=== PATIENT | male | born 1945 | race Caucasian/White ===

== ENCOUNTER → 2018-01-09 06:59 | Day surgery (SDC) | payer MEDICARE, SELFPAY ==
[2018-01-08 11:57] VITALS: BMI 36.4
[2018-01-09 07:10] LABS: Prothrombin Time Fingerstick 13.8 SEC (11.9-14.4)
--- NOTE | 2018-01-09 08:48 | CL.D_ITS ---
Patient Name: JUANTIA FORBES Study Date: 01/09/2018 Performing: Rosendo Contreras MD Ht: 72.04 inches 183 cm : 1945 Wt: 268.96 lbs 122 kg Age: 72 Gender: male BSA: 2.42 PROCEDURE(S) PERFORMED [id number]/COR/LV CLINICAL PROFILE AND INDICATIONS INDICATIONS: 72-year-old man with a history of atrial fibrillation cardiomyopathy and abnormal st ress test. Stress/Imaging Stress Echocardiogram: Yes Result: IndeterminantStress Echocardiogram: Indetermina nt CONCLUSIONS Coronary artery disease with a nondominant right coronary artery stenosis. Global hypokinesis consis tent with cardiomyopathy likely secondary to atrial fibrillation RECOMMENDATIONS Medical therapy DESCRIPTION OF PROCEDURE The patient arrived to the procedure lab. The risks and benefits of the procedure as well as a full d escription of our services here and current unavailability of surgical backup were fully explained to the patient and/or their significant other prior to the catheterization. The Timeout was completed, verifying the correct patient and procedure. The patient's procedural site was prepped and draped in the usual fashion. Local anesthetic was given subcutaneously to right radial region with Lidocaine 2% . Using a modified Seldinger technique, arterial access was obtained via the right radial artery, a 6 Fr sheath was inserted. Right Coronary Artery selective angiography was then performed in multiple v iews using a 5 Fr. 4.0 Lomax catheter. Left Coronary Artery selective angiography was performed in mu ltiple views using a 5 Fr. 4.0 Lomax catheter. Left Ventriculography was performed in DURHAM projection using a 5 Fr. Pigtail catheter. LV to AO pullback pressures were then recorded.The arterial sheath wa s pulled and a TR Band was applied for hemostasis w16ml air CORONARY ANGIOGRAPHY DOMINANCE: Left Dominant LEFT HEART ASSESSMENT Left Ventricular Ejection Fraction: by LV Gram 35 % Global Hypokinesis - Moderate Depressed Left Ventricular systolic function LEFT MAIN: Angiographically normal LEFT ANTERIOR DECENDING ARTERY: Mild luminal irregularities CIRCUMFLEX ARTERY: MID CIRC: Moderate luminal irregularities up to 50% RIGHT CORONARY ARTERY: MID RCA: 90 small non dominant % Stenosis COMPLICATIONS No Complications PROCEDURE MEDICATIONS Fentanyl 50 mcg IV Versed 1 mg IV Oxygen: 2 L/min via nasal cannula Baby Aspirin (81mg) 4 Tabs PO @ 01/09/2018 08:16:05 Heparin diluted in 23cc Heparinized saline. Patient given 10cc IA of this solution. 01/09/2018 08:16: 00 Verapamil 2.5mg, Ntg 100mcgs, 2000 units of Heparin diluted in 23cc Heparinized saline. Patient give n 10cc IA of this solution. 01/09/2018 08:16:00 SUMMARY OF HEMODYNAMIC DATA Time AIR REST ECG 07:39:34 AO 113/73 (89) SA 08:18:35 LV 122/16, 20 08:27:53 LV 121/16, 23 08:28:00 LV 123/11, 23 08:29:52 LVp 136/11, 21 08:29:58 AOp 126/75 (93) 08:30:03 Signed By Rosendo Contreras MD On 01/09/2018 08:47:36 Rosendo Contreras MD
== END ==
PROVIDERS: Family Provider Internal Medicine; PCP Internal Medicine; Visit Provider Internal Medicine Cardiovascular Disease
DX: I42.9 Cardiomyopathy, unspecified (principal); R94.39 Abnormal result of other cardiovascular function study; I48.0 Paroxysmal atrial fibrillation; I10 Essential (primary) hypertension; E78.5 Hyperlipidemia, unspecified; G47.33 Obstructive sleep apnea (adult) (pediatric); E11.9 Type 2 diabetes mellitus without complications; N40.1 Benign prostatic hyperplasia with lower urinary tract symptoms; K21.9 Gastro-esophageal reflux disease without esophagitis; E66.9 Obesity, unspecified; G25.81 Restless legs syndrome; R06.00 Dyspnea, unspecified; Z68.36 Body mass index [BMI] 36.0-36.9, adult; Z87.891 Personal history of nicotine dependence; Z79.4 Long term (current) use of insulin; Z79.01 Long term (current) use of anticoagulants; Z79.82 Long term (current) use of aspirin; Z79.899 Other long term (current) drug therapy
CPT/HCPCS: 36416; 85610; 93458; 99152; 99153; J7040; Q9967; C1769; C1894

== ENCOUNTER → 2018-01-28 10:56 | Day surgery (SDC) | payer MEDICARE, SELFPAY ==
[2018-01-28 11:23] LABS: International Normalized Ratio 2.6; Prothrombin Time (Protime)PT. 27.6 SECONDS (11.7-14.9)
[2018-01-28 11:27] LABS: Anion Gap 5 (5-15); BUN 15 mg/dL (7-18); BUN/Creat Ratio 13.5 RATIO (10-20); Calcium,Total 8.3 mg/dL (8.5-10.1); Chloride 106 mmol/L (98-107); Creatinine, Serum 1.11 mg/dL (0.70-1.30); EST Glomerular Filtration Rate 70 mL/min (>60); Est Glom Filt Rate - Afr Amer 84 mL/min (>60); Glucose 98 mg/dL (74-106); Potassium 3.9 mmol/L (3.5-5.1); Sodium Level 141 mmol/L (136-145)
--- NOTE | 2018-01-28 13:03 | PCM.OP.BLANK ---
Operative Report Date of Procedure: 01/28/18 Direct current cardioversion Indication: Atrial fibrillation symptomatic. Patient had been anticoagulated for an appropriate 3 months with a therapeutic INR. He was brought into the noninvasive lab and was evaluated by the nursing staff, by me and by Dr. Lee of the pulmonary critical care division. After appropriate consent was obtained he underwent administration of 80 mg of intravenous etomidate after anterior posterior pads were applied. 200 J of synchronized DC cardioversion energy were applied with prompt reversal to sinus rhythm. Tolerated the procedure well with EKG confirmation of sinus rhythm noted.
--- NOTE | 2018-01-28 13:17 | PCM.OP.BLANK ---
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 Contreras, who presents for an elective cardioversion secondary to atrial fibrillation. Patient is currently on Coumadin therapy and is therapeutic at 2.6 INR. Patient had a heart catheterization 2 weeks ago and was noted to have an EF of 35% at that time. Patient also reports that he has been diagnosed with obstructive sleep apnea in the past and currently uses 12-16 cm of water to control symptoms. Patient is compliant with therapy. Patient reports nothing to eat after midnight. Patient denies any problems with previous sedation. Patient denies any recent symptoms of acute illness such as nasal congestion, cough, fever, chills or shortness of breath. PHYSICAL EXAM General: Alert and oriented ?4 in no apparent distress and speaking in full sentences. Obese. HEENT: Normocephalic, atraumatic, MMM and pink. Mallampati 3. Fair dentition without dentures or partials. Good neck and mouth mobility. Trachea midline. Chest: S1-S2 irregular irregular with no murmurs, rubs or gallops. Lungs CTAB with no wheezes, rales or rhonchi. Symmetric expansion. Abdomen: Obese, soft, nontender, nondistended with bowel sounds. Extremities: No clubbing or cyanosis. 2+ lower extremity edema. No venous stasis changes noted. ASA class II PROCEDURE: After confirmation of informed consent and review of history of present illness, patient was chosen to have etomidate as a sedative of choice. Risks and benefits were reviewed and patient agreed to proceed. At 12:31 PM, the patient was given 4 mg of etomidate. The patient ended up requiring a total of 8 mg of etomidate to reach appropriate sedation. At that time, patient was given a 200 J synchronized cardioversion by Dr. Contreras that was successful in achieving sinus bradycardia. This was confirmed by EKG. The patient was monitored until 12:40 PM when he was back to his baseline mental status. Complications: None Recommendations: Okay to recover in the usual fashion. Code Visit 9xxxx: Other Procedure See Report - [id number]
--- NOTE | 2018-01-28 13:24 | OP.PCM_ITS ---
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 Contreras, who presents for an elective cardioversion secondary to atrial fibrillation. Patient is currently on Coumadin therapy and is therapeutic at 2.6 INR. Patient had a heart catheterization 2 weeks ago and was noted to have an EF of 35% at that time. Patient also reports that he has been diagnosed with obstructive sleep apnea in the past and currently uses 12-16 cm of water to control symptoms. Patient is compliant with therapy. Patient reports nothing to eat after midnight. Patient denies any problems with previous sedation. Patient denies any recent symptoms of acute illness such as nasal congestion, cough, fever, chills or shortness of breath. PHYSICAL EXAM General: Alert and oriented ?4 in no apparent distress and speaking in full sentences. Obese. HEENT: Normocephalic, atraumatic, MMM and pink. Mallampati 3. Fair dentition without dentures or partials. Good neck and mouth mobility. Trachea midline. Chest: S1-S2 irregular irregular with no murmurs, rubs or gallops. Lungs CTAB with no wheezes, rales or rhonchi. Symmetric expansion. Abdomen: Obese, soft, nontender, nondistended with bowel sounds. Extremities: No clubbing or cyanosis. 2+ lower extremity edema. No venous stasis changes noted. ASA class II PROCEDURE: After confirmation of informed consent and review of history of present illness , patient was chosen to have etomidate as a sedative of choice. Risks and benefits were reviewed and patient agreed to proceed. At 12:31 PM, the patient was given 4 mg of etomidate. The patient ended up requiring a total of 8 mg of etomidate to reach appropriate sedation. At that time, patient was given a 200 J synchronized cardioversion by Dr. Contreras that was successful in achieving sinus bradycardia. This was confirmed by EKG. The patient was monitored until 12:40 PM when he was back to his baseline mental status. Complications: None Recommendations: Okay to recover in the usual fashion. Code Visit 9xxxx: Other Procedure See Report - [id number]
== END ==
PROVIDERS: Family Provider Internal Medicine; PCP Internal Medicine; Visit Provider Internal Medicine Cardiovascular Disease
DX: I48.0 Paroxysmal atrial fibrillation (principal); I42.9 Cardiomyopathy, unspecified; I10 Essential (primary) hypertension; E78.5 Hyperlipidemia, unspecified; G47.33 Obstructive sleep apnea (adult) (pediatric); E11.9 Type 2 diabetes mellitus without complications; R06.00 Dyspnea, unspecified; N40.1 Benign prostatic hyperplasia with lower urinary tract symptoms; K21.9 Gastro-esophageal reflux disease without esophagitis; E66.9 Obesity, unspecified; G25.81 Restless legs syndrome; Z87.891 Personal history of nicotine dependence; Z68.36 Body mass index [BMI] 36.0-36.9, adult; Z79.4 Long term (current) use of insulin; Z79.01 Long term (current) use of anticoagulants; Z79.82 Long term (current) use of aspirin; Z79.899 Other long term (current) drug therapy
CPT/HCPCS: 36415; 80048; 85610; 92960; 93005; J7040

== ENCOUNTER → 2020-07-12 | Outpatient (CLI) | payer MEDICARE, SELFPAY ==
[2018-01-08 11:57] VITALS: BMI 36.4
[2020-07-12 12:42] LABS: International Normalized Ratio 2.3; Prothrombin Time (Protime)PT. 25.1 SECONDS (11.7-14.9)
== END | disposition home or self-care (01) ==
PROVIDERS: PCP Internal Medicine; Referring Provider Internal Medicine; Visit Provider Internal Medicine
DX: Z79.01 Long term (current) use of anticoagulants (principal)
CPT/HCPCS: 85610

== ENCOUNTER → 2020-09-13 | Outpatient (CLI) | payer MEDICARE, SELFPAY ==
[2020-09-13 10:19] LABS: International Normalized Ratio 1.5; Prothrombin Time (Protime)PT. 17.6 SECONDS (11.7-14.9)
== END | disposition home or self-care (01) ==
PROVIDERS: Internal Medicine
DX: Z79.01 Long term (current) use of anticoagulants (principal)
CPT/HCPCS: 85610

== ENCOUNTER → 2020-12-23 10:41 | Outpatient (CLI) | payer OTHER, SELFPAY ==
--- NOTE | 2020-12-23 11:01 | MRI_ITS ---
STUDY: MR PELVIS WITH T WITHOUT CONTRAST REASON FOR EXAM: Male, 75 years old. Recent diagnosis of prostate cancer. Ultrasound biopsy. TECHNIQUE: Standardized fat and water weighted pulse sequences were obtained in all 3 orthogonal planes, pre-and post contrast administration. dotarem 24 ml IV was administered for the contrast portion of the examination. COMPARISON: None. FINDINGS: The prostate is enlarged, measuring 4.6 x 4.0 x 4.8 cm with a volume of 44.2 mL. There is no evidence of abnormal signal in the peripheral zone on diffusion weighted imaging. There is area of low attenuation in the right peripheral zone on the ADC mapping. There is slightly lower attenuation in this area on T2-weighted imaging. There is diffusely heterogenous changes within the transitional zone on T2-weighted imaging with multiple nodular areas. There is no evidence of abnormal signal on diffusion weighted imaging and ADC mapping. Normal seminal vesicles. There is trabeculation and thickening of the urinary bladder wall without filling defect. The distal ureters appear grossly normal. Normal visualized small intestine. Normal visualized colon. There is no pelvic fluid. There is no pelvic mass lesion or lymphadenopathy. Normal visualized pelvic arteries. Normal osseous structures. Normal abdominal wall. MRI/Pelvis W/WO Contrast IMPRESSION: 1. Findings suggestive of PIRADS 3 -- intermediate lesion in the right posterior parietal zone. Presence of clinically significant cancer is equivocal. 2. Findings consistent with PIRADS 2 low for the transitional zone. This has the appearance of BPH. Clinical significant cancer is unlikely to be present. 3. Thick walled trabeculated urinary bladder. Electronically Signed: Eliezer John DO at 23:20 EST Tel [phone], Service support ,
== END ==
PROVIDERS: PCP Internal Medicine
DX: C61 Malignant neoplasm of prostate (principal)
CPT/HCPCS: 72197; A9575

== ENCOUNTER 2022-03-07 09:15 | Outpatient (RCR) | payer MEDICARE, SELFPAY ==
[2022-02-28 09:02] VITALS: BP 139/68; PULSE 83; TEMP 35.6; BMI 33.9
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
[2022-03-07 09:14] VITALS: BP 147/87; PULSE 72; RESP 16; TEMP 36.3; BMI 33.9
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
== END 2022-03-07 13:04 | disposition home or self-care (01) ==
LOC: WC 09:15
PROVIDERS: PCP Internal Medicine; Visit Provider Surgery
DX: T23.222A Burn of second degree of single left finger (nail) except thumb, initial encounter (principal); W86.8XXA Exposure to other electric current, initial encounter; Y92.096 Garden or yard of other non-institutional residence as the place of occurrence of the external cause; I42.8 Other cardiomyopathies; E11.40 Type 2 diabetes mellitus with diabetic neuropathy, unspecified; I48.0 Paroxysmal atrial fibrillation; I10 Essential (primary) hypertension; E78.5 Hyperlipidemia, unspecified; N40.0 Benign prostatic hyperplasia without lower urinary tract symptoms; M48.02 Spinal stenosis, cervical region; G25.81 Restless legs syndrome; G47.33 Obstructive sleep apnea (adult) (pediatric); K21.9 Gastro-esophageal reflux disease without esophagitis; E66.9 Obesity, unspecified; Z79.4 Long term (current) use of insulin; Z79.01 Long term (current) use of anticoagulants; Z79.899 Other long term (current) drug therapy; Z85.46 Personal history of malignant neoplasm of prostate; Z87.891 Personal history of nicotine dependence
CPT/HCPCS: 11042; 16020; 99213; G0463

== ENCOUNTER → 2022-12-22 | Outpatient (CLI) | payer MEDICARE, SELFPAY ==
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
--- NOTE | 2022-12-22 09:30 | PR.OPITP_ITS ---
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 - Personal Learning Style/Barriers Personal Learning Style:: Audio/Visual, Written Barriers to Learning: Hearing impaired - slight hearing loss due to age. Stage of change r/t lifestyle modifications: Prepared Educational Classes OK: Breathing Retraining: Initial Assessment, Exercise: Initial Assessment, Energy Conservation: Initial Assessment, Emotion Social Well Being: Initial Assessment, Oxygen therapy: Initial Assessment - Education/Goals Individual Counseling: Initial Assessment: High Blood Pressure, Diabetes, Overweight/Obesity, Sedentary Lifestyle OK Patient Goals: Increase muscle strength: Initial Assessment, Experience less dyspnea: Initial Assessment, Improve energy level: Initial Assessment, Participate in home exercise: Initial Assessment, Increase knowledge of oxygen use: Initial Assessment, Improve my quality of life: Initial Assessment Exercise - Initial Assessment - Visit Date of Eval: 12/22/22 Session Number:: 0 - pre-outpatient respiratory evaluation - Problem/Goals Problems: Deconditioning, No regular exercise, Knowledge deficit exercise guidelines, Knowledge deficit exercise safety Goals:: Resistance: 2-3x/weekly - Physician Prescribed Exercise Modalities: Treadmill, Airdyne, NuStep Frequency (days/week): 3 Duration (Minutes):: 30-45 Intensity: 60-80% of age predicted maximum heart rate reserve Current METSs:: 2.0-3.0 Target HR:: 108 - THRR 94-108 w/max HR 133 Resting Blood Pressure: 110/56 EKG Type: Sinus bradycardia Current Minutes of Exercise: 0 - Plan Plan and Plan to Review:: Benefits of exercise, Core components of exercise, How to measure dyspnea level, How to monitor dyspnea level, Exercise intensity, Exercise safety guideline, Home exercise guidelines, Alex: 3-4/11-13 Nutrition/Wt Mgmt - Initial - Visit Date of Eval: 12/22/22 Session Number:: 0 - pre-outpatient respiratory evaluation - Problems/Goals Problems: Overweight Goals: Wt Loss 1-2 lbs per week - Weight Management Knowledge Deficit Management of:: Overweight, Lack of vitamin D/Ca++ supplement, Role of exercise in weight control Admit Height:: 5 ft 9 in Admit Weight:: 243 lb Admit BMI:: 35.9 - Intervention Referral to dietitian:: Yes Will attend diet classes:: Yes Intervention/Plan: Instruct on ideal BMI & set weight loss goal w/patient, Assist pt to ID & incorporate diet changes for weight loss by S9, Refer to Structured Weight Loss program as appropriate, Encourage goal of using 250- 300dcal per session for weight loss - Plan Nutrition Plan: Yes Review BMI or WC & identify target wt & strategies for wt control, Yes Nutrition education class:, Yes Weight control education class:, Yes Education re: Need for ongoing weight monitoring Psychosocial - Initial Assess - Visit Date of Eval: 12/22/22 Session Number:: 0 - pre-outpatient respiratory evaluation - Problems/Goals History of Emotional Disorders: Anxious Self-reported stressors: Medical/Health, Recent Illness - Psychosocial Test Tool Used:: Pulmonary QOL, PHQ-9 Questionnaire PHQ-9 Score: 14 - Refer back to his PCP. - Referral to Behavioral Health PS - Interventions: Yes Referral to Physician if PHQ-9 if score is 5-9: - Refer to Dr. Pozo, Yes Attend Stress Management Classes, No Referral to Behavioral Health if PHQ-9 score >9:, No Referral to [facility] - Intervention/Plan: See List Interventions/Plan:: Assess stressors,coping strategies & signs of derpression on admission, Instruct/assist pt to develop coping & personal stress Mgt strategies, Instruct patient to recognize signs & symptoms of depression, Instruct patient to recog Oxygen & Oxygen Titration Init - Visit Date of Eval: 12/22/22 Session Number:: 0 - outpatient respiratory evaluation - Initial Assessment Oxygen on Admission: Continuous home use, CPAP/BIPAP - 95 SpO2:: 95 Port O2:: 2 - Goal Oxygen & Oxygen Tritration Goals: Effective hypoxemia control, Uses O2 as Rx'd/safely - Plans Plan: Monitor SpO2 rest & with exercise, Train appropriate O2 use at rest, Train appropriate O2 use with exercise, Train O2 safety & systems Reviewed prescribed medications:: Purpose, Schedule, Side effects, Importance of compliance Instruct correct technique/timing & care:: MDI, Nebulizer, Return demo use of inhaler Bronchial Hygiene Plan: Controlled cough, Vibratory PEP device, Hydration, Hand hygiene, Signs/symptoms to report: Core Components - Initial - Visit Date of Eval: 12/22/22 Session Number:: 0 - pre-outpatient respiratory evaulation - Hypertension Hypertension Diagnosis:: Hypertension ICD-10 I10 [place] [employer] Hypertension Guidelines: [place] [employer] Hypertension Guidelines. Normal BP Less than 120/80. Elevated BP 120/80. Hypertension Stage 1: BP 130-139/80-89. Hypertesnion Stage 2: BP 140 or higher/90 or higher. Hypertension Crisis: BP higher than 180/120 Blood Pressure: 110/56 Low Sodium diet: Yes Outcomes/Goals: Able to verbalize/achieve optimal blood pressure <130/80, Incorporates diet changes & exercise for blood pressure control by DC - Tobacco - Initial Assessment Tobacco Program Goals: Complete smoking cessation. Attend education classes. Improve Knowledge Test score Tobacco Use: Non-smoker Gave Education Materials For:: Pulmonary Disease, Breathing Techniques, Medical Compliance, Pulmonary A&P, Exacerbation Signs & Symptoms, Stress & Relaxation - Exacerbation Mgmt & Airway Clearance Problems:: Hypoxemia Hypoxemia Goals:: Hypoxemia managed, Port system, Using O2 as Rx's safely Goals: Pt describes signs and symptoms of infection. Plan: Monitor SpO2 rest & with exercise, Train appropriate O2 use at rest, Train appropriate O2 use with exercise, Train O2 safety & systems Instruct correct technique/timing & care:: MDI, Nebulizer, Return demo use of inhaler Bronchial Hygiene Plan: Controlled cough, Vibratory PEP device, Hydration, Hand hygiene, Signs/symptoms to report: - Medication Interventions/plans: Instruct on medication effects & side effects, Review medication list w/patient every two weeks, Instruct importance of taking meds as ordered & assist problem solving Medication Goals: Adherence to prescribed medications Medications: Yes MDI, Yes DPI, Yes NEB, Yes Spacer Reviewed prescribed medications:: Purpose, Schedule, Side effects, Importance of compliance - Diabetes Diabetes:: Yes Insulin: Yes Do you monitor your blood sugar at home?: Yes Refer to Nutritional Services: Medical Nutrition Therapy Referral to dietitian:: Yes Referral to Diabetic Clinic:: Yes Will attend diet classes:: Yes - Heart Failure Documenting weight daily for CHF: No Core Components - 30 DAYS Core Components - 60 DAYS Core Components - 90 DAYS Core Components - Final Patient Health Questionnaire Initial Assessment 1. Little interest or pleasure in doing things: More than half the days 2. Feeling down, depressed, or hopeless: Several days 3. Trouble falling or staying asleep, or sleeping too much: More than half the days 4. Feeling tired or having little energy: Nearly every day 5. Poor appetite or overeating: Nearly every day 7. Trouble concentrating on things, such as reading the newspaper or watching television: Not at all 8. Moving or speaking so slowly that other people could have noticed. Or the opposite - being so fidgety or restless that you have been moving around a lot more than usual: Nearly every day 9. Thoughts that you would be better off , or of hurting yourself in some way: Not at all How difficult have these problems made it for you to do your work, take care of things at home, or get along with other people?: Very difficult Total Score: 14 Knowledge Questionaire (BCKQ) - Information Information: [place] COPD Knowledge Questionnaire (BCKQ) This questionnaire is designed to find out what you know about your lung problem. It should be completed without help form anyone else. This usually takes between 10 and 20 minutes. Your answers will help us to find out what information you need to help you to understand and manage your lung condition. [place] which you think is the correct answer. Self-Efficacy Initial Assessment We would like to know how confident you are in doing certain activities. Please select your confidence level for:: Select your confidence level for the following using the scale 1-10 where 1 is not at all confident and 10 is totally confident. Your score is the average of all 6 responses. Fatigue: How confident are you that you can keep the fatigue caused by your disease from interfering with the things you want to do? Select Number: 1 Physical Discomfort or Pain: How confident are you that you can keep the physical discomfort or pain of your disease from interfering with the things you want to do? Select Number: 1 Emotional Distress: How confident are you that you can keep the emotional distress caused by your disease from interfering with the things you want to do? Select Number: 1 Other Symptoms or Health Problems: How confident are you that you can keep other symptoms or health problems from interfering with the things you want to do? Select Number: 1 Different Tasks and Activities: How confident are you that you can do the different tasks and activities needed to manage your health condition so as to reduce your need to see a doctor? Select Number: 2 Medication: How confident are you that you can do things other than just taking medication to reduce how much your illness affects your everyday life? Select Number: 5 Total Score:: 1 Nutrition Survey - Nutrition Survey Initial Have you lost >10 lbs over the past 2 months without trying?: No Are you following a special diet at home for diabetes, low fat, or low salt?: No Are you interested in meeting with a dietitian for help understanding your diet?: Yes Do you eat less than 3 meals a day?: Yes Do you eat fatty meats ([place], sausage, ribs, etc), fried foods, desserts, large amounts of salad dressings, margarine, butter, or cheese most days?: Yes Do you have food allergies? [Enter types in comment field]: No Do you eat in restaurants more than 3 times a week?: Yes Do you season food with salt, seasoning salt, or garlic salt?: Yes Do you used canned, boxed, frozen meals, or soups, seasoning packets?: Yes Total Score:: 6
[2022-12-22 10:05] VITALS: BP 110/56; PULSE 76; RESP 20; TEMP 36; O2SAT 95; BMI 35.9
[2022-12-22 10:45] VITALS: BP 110/56; O2SAT 95; BMI 35.9
== END | disposition home or self-care (01) ==
LOC: PR 09:24
PROVIDERS: PCP Internal Medicine; Visit Provider Internal Medicine
DX: U09.9 Post COVID-19 condition, unspecified (principal); I50.32 Chronic diastolic (congestive) heart failure; I42.9 Cardiomyopathy, unspecified; I11.0 Hypertensive heart disease with heart failure; E11.9 Type 2 diabetes mellitus without complications; E78.5 Hyperlipidemia, unspecified; E66.9 Obesity, unspecified; I25.10 Atherosclerotic heart disease of native coronary artery without angina pectoris; R09.02 Hypoxemia; Z99.81 Dependence on supplemental oxygen

== ENCOUNTER 2022-12-25 11:30 | Outpatient (RCR) | payer MEDICARE, SELFPAY | END 2022-12-26 23:59 | LOC: PR 11:30 | PROVIDERS: PCP Internal Medicine; Visit Provider Internal Medicine | DX: R06.09 Other forms of dyspnea (principal); U09.9 Post COVID-19 condition, unspecified | CPT/HCPCS: 97150; G0239 ==

== ENCOUNTER 2023-01-17 11:16 | Outpatient (RCR) | payer MEDICARE, SELFPAY | END 2023-01-23 23:59 | LOC: DC 11:16 | PROVIDERS: PCP Internal Medicine; Referring Provider Internal Medicine; Visit Provider Internal Medicine | DX: E11.9 Type 2 diabetes mellitus without complications (principal); E66.9 Obesity, unspecified; E78.5 Hyperlipidemia, unspecified; I10 Essential (primary) hypertension | CPT/HCPCS: G0108 ==

== ENCOUNTER 2023-01-19 10:30 | Outpatient (RCR) | payer MEDICARE, SELFPAY | END 2023-01-23 23:59 | LOC: PR 10:30 | PROVIDERS: PCP Internal Medicine; Visit Provider Internal Medicine | DX: R06.09 Other forms of dyspnea (principal); U09.9 Post COVID-19 condition, unspecified | CPT/HCPCS: 94667; 97150; G0108; G0239 ==

== ENCOUNTER → 2023-02-06 | Outpatient (CLI) | payer MEDICARE, SELFPAY ==
--- NOTE | 2023-02-06 13:50 | RAD_ITS ---
STUDY: X-RAY CHEST REASON FOR EXAM: Male, 77 years old. SOB, A-FIB TECHNIQUE: PA and lateral views of the chest. COMPARISON: None. FINDINGS: The lungs are clear and expanded. There is no demonstrated pleural abnormality. Normal size heart. Normal mediastinum and hanna. Normal visualized pulmonary arteries. Normal visualized aortic arch and descending thoracic aorta. There are diffuse degenerative changes of the visualized thoracic spine. Normal visualized ribs, clavicles, and shoulders. There is no demonstrated abnormality of the visualized soft tissue structures of the upper abdomen. RAD/Chest PA and Lateral IMPRESSION: No acute pulmonary process Electronically Signed: Barrett Rivera MD at 14:12 EDT ,
== END | disposition home or self-care (01) ==
LOC: RAD 13:42
PROVIDERS: PCP Internal Medicine; Visit Provider Internal Medicine Pulmonary Disease
DX: R06.02 Shortness of breath (principal); I48.91 Unspecified atrial fibrillation
CPT/HCPCS: 71046

== ENCOUNTER 2023-02-21 11:30 | Outpatient (RCR) | payer MEDICARE, SELFPAY | END 2023-02-23 23:59 | LOC: DC 11:30 | PROVIDERS: PCP Internal Medicine; Referring Provider Internal Medicine; Visit Provider Internal Medicine | DX: E78.5 Hyperlipidemia, unspecified (principal); E66.9 Obesity, unspecified; I10 Essential (primary) hypertension; E11.9 Type 2 diabetes mellitus without complications; R06.09 Other forms of dyspnea; U09.9 Post COVID-19 condition, unspecified; R09.02 Hypoxemia | CPT/HCPCS: 97150; 97802; 97803; G0108; G0239 ==

== ENCOUNTER 2023-02-23 10:30 | Outpatient (RCR) | payer MEDICARE, SELFPAY ==
--- NOTE | 2023-02-19 13:10 | PCM.PR.TP ---
Exercise - 60-Day Assessment - Visit Date of Eval: 02/19/23 Session Number:: 25 - Physician Prescribed Exercise Modalities: Treadmill, NuStep, SciFit Frequency (days/week): 3 Duration (Minutes):: 30-45 min Intensity: 60-80% of age predicted maximum heart rate reserve Aerobic Exercise [30-60 min 3-7x/week]:: Progressing Current METSs: 3.5 Current RPD:: 13 Maximum Exercise HR:: 95 Resting Blood Pressure: 116/60 Maximum Exercise Blood Pressure: 116/60 Minimum SpO2 with exercise: 91 Nutrition/Wt Mgmt - 60-Day - Visit Date of Eval: 02/19/23 Session Number:: 25 - Weight Management Weight Assessment:: Wt stable Height: 5 ft 9 in Weight:: 105.233 kg BMI: 34.2 Psychosocial - 60-Day - Visit Date of Eval: 02/19/23 Session Number:: 25 - Problems/Goals History of Emotional Disorders: Anxious Self-reported stressors: Medical/Health, Recent Illness Oxygen & Oxygen Titration 60D - Visit Date of Eval: 02/19/23 Session Number:: 25 - Reassessment Reassessment- 60 Days: Demonstrate knowledge of O2 Rx at rest & w/exercise, Using O2 as Rx'd Core Components - Initial Core Components - 30 DAYS Core Components - 60 DAYS - Visit Date of Eval: 02/19/23 Session Number:: 25 - Hypertension Hypertension Diagnosis:: Hypertension ICD-10 I10 Resting Blood Pressure:: 116/60 [place] [employer] Hypertension Guidelines: [place] [employer] Hypertension Guidelines. Normal BP Less than 120/80. Elevated BP 120/80. Hypertension Stage 1: BP 130-139/80-89. Hypertesnion Stage 2: BP 140 or higher/90 or higher. Hypertension Crisis: BP higher than 180/120 Peak Exercise Blood Pressure:: 116/60 Change in medication: No 60 day Reassessments:: Met - Diabetes Diabetes:: Yes Non-Insulin Dependent?: Yes Core Components - 90 DAYS Core Components - Final Patient Health Questionnaire 60-Day Re-eval Assessment 1. Little interest or pleasure in doing things: More than half the days 2. Feeling down, depressed, or hopeless: Several days 3. Trouble falling or staying asleep, or sleeping too much: More than half the days 4. Feeling tired or having little energy: Nearly every day 5. Poor appetite or overeating: Nearly every day 6. Feeling bad about yourself -- or that you are a failure or have let yourself or your family down: Not at all 7. Trouble concentrating on things, such as reading the newspaper or watching television: Nearly every day 8. Moving or speaking so slowly that other people could have noticed. Or the opposite - being so fidgety or restless that you have been moving around a lot more than usual: More than half the days 9. Thoughts that you would be better off , or of hurting yourself in some way: Not at all How difficult have these problems made it for you to do your work, take care of things at home, or get along with other people?: Very difficult Total Score: 16 Knowledge Questionaire (BCKQ) - Information Information: [place] COPD Knowledge Questionnaire (BCKQ) This questionnaire is designed to find out what you know about your lung problem. It should be completed without help form anyone else. This usually takes between 10 and 20 minutes. Your answers will help us to find out what information you need to help you to understand and manage your lung condition. [place] which you think is the correct answer. Self-Efficacy 60-Day Re-eval Assessment We would like to know how confident you are in doing certain activities. Please select your confidence level for:: Select your confidence level for the following using the scale 1-10 where 1 is not at all confident and 10 is totally confident. Your score is the average of all 6 responses. Fatigue: How confident are you that you can keep the fatigue caused by your disease from interfering with the things you want to do? Select Number: 1 Physical Discomfort or Pain: How confident are you that you can keep the physical discomfort or pain of your disease from interfering with the things you want to do? Select Number: 1 Emotional Distress: How confident are you that you can keep the emotional distress caused by your disease from interfering with the things you want to do? Select Number: 1 Other Symptoms or Health Problems: How confident are you that you can keep other symptoms or health problems from interfering with the things you want to do? Select Number: 1 Different Tasks and Activities: How confident are you that you can do the different tasks and activities needed to manage your health condition so as to reduce your need to see a doctor? Select Number: 2 Medication: How confident are you that you can do things other than just taking medication to reduce how much your illness affects your everyday life? Select Number: 5 Total Score:: 1 Nutrition Survey
[2023-02-19 13:22] VITALS: BP 116/60; O2SAT 91; BMI 34.2
== END 2023-02-23 23:59 ==
LOC: PR 10:30
PROVIDERS: PCP Internal Medicine; Visit Provider Internal Medicine
DX: R06.09 Other forms of dyspnea (principal); U09.9 Post COVID-19 condition, unspecified; E11.9 Type 2 diabetes mellitus without complications; E66.9 Obesity, unspecified; E78.5 Hyperlipidemia, unspecified; I10 Essential (primary) hypertension
CPT/HCPCS: 97150; G0239

== ENCOUNTER 2023-03-21 10:30 | Outpatient (RCR) | payer MEDICARE, SELFPAY ==
[2023-02-19 13:22] VITALS: BMI 34.2
[2023-02-24 01:55] VITALS: BP 116/60
== END 2023-03-25 23:59 ==
LOC: PR 10:30
PROVIDERS: PCP Internal Medicine; Visit Provider Internal Medicine
DX: R06.09 Other forms of dyspnea (principal); U09.9 Post COVID-19 condition, unspecified; R09.02 Hypoxemia
CPT/HCPCS: 97150; G0239

== ENCOUNTER 2023-03-22 09:54 | Outpatient (RCR) | payer MEDICARE, SELFPAY ==
[2023-02-19 13:22] VITALS: BMI 34.2
== END 2023-03-25 23:59 ==
LOC: DC 09:54
PROVIDERS: PCP Internal Medicine; Referring Provider Internal Medicine; Visit Provider Internal Medicine
DX: E78.5 Hyperlipidemia, unspecified (principal); E66.9 Obesity, unspecified; I10 Essential (primary) hypertension; E11.9 Type 2 diabetes mellitus without complications
CPT/HCPCS: 97803

== ENCOUNTER 2023-04-17 08:00 | Outpatient (RCR) | payer SELFPAY ==
[2023-02-19 13:22] VITALS: BMI 34.2
== END 2023-04-25 23:59 ==
LOC: PR 08:00
PROVIDERS: PCP Internal Medicine; Referring Provider Internal Medicine; Visit Provider Internal Medicine
DX: Z00.00 Encounter for general adult medical examination without abnormal findings (principal)

== ENCOUNTER 2023-05-22 08:00 | Outpatient (RCR) | payer SELFPAY ==
[2023-02-19 13:22] VITALS: BMI 34.2
== END 2023-05-25 23:59 ==
LOC: PR 08:00
PROVIDERS: PCP Internal Medicine; Referring Provider Internal Medicine; Visit Provider Internal Medicine
DX: Z00.00 Encounter for general adult medical examination without abnormal findings (principal)

== ENCOUNTER 2023-05-31 06:09 | Outpatient (RCR) | payer SELFPAY ==
[2023-02-19 13:22] VITALS: BMI 34.2
== END 2023-06-25 23:59 ==
LOC: PR 06:09
PROVIDERS: PCP Internal Medicine; Referring Provider Internal Medicine; Visit Provider Internal Medicine
DX: Z00.00 Encounter for general adult medical examination without abnormal findings (principal)

== ENCOUNTER → 2023-06-05 | Outpatient (CLI) | payer MEDICARE, SELFPAY ==
[2023-02-19 13:22] VITALS: BMI 34.2
--- NOTE | 2023-06-05 10:18 | RAD_ITS ---
PROCEDURE: Sniff test. DATE OF EXAMINATION: June 05, 2023. INDICATION: Male, 77 years old. Shortness of breath. FLUOROSCOPY TIME (if supplied): (29 seconds) minutes/seconds. 10.7 mGy. 3 images were obtained. RAD/Fluoroscopy 1 Hr or Less IMPRESSION: Normal movement of both hemidiaphragms. Electronically Signed: Roger Al MD at 13:03 EDT ,
== END | disposition home or self-care (01) ==
LOC: RAD 10:16
PROVIDERS: PCP Internal Medicine; Referring Provider Internal Medicine Pulmonary Disease; Visit Provider Internal Medicine Pulmonary Disease
DX: R06.02 Shortness of breath (principal)
CPT/HCPCS: 76000

== ENCOUNTER → 2023-07-23 | Outpatient (CLI) | payer MEDICARE, SELFPAY ==
[2023-02-19 13:22] VITALS: BMI 34.2
--- NOTE | 2023-07-23 18:40 | CT_ITS ---
EXAM: CT CHEST WITHOUT INTRAVENOUS CONTRAST CLINICAL INDICATION: SOB TECHNIQUE: Helically acquired images were obtained of the chest without intravenous contrast. This CT exam was performed using one or more of the following dose reduction techniques: automated exposure control, adjustment of the mA and/or kV according to patient size, and/or use of iterative reconstruction technique. RADIATION DOSE: CTDIvol = 17.65 mGy, DLP = 665.84 mGy-cm. COMPARISON: No relevant prior studies available. FINDINGS: LUNGS AND PLEURAL SPACES: Mild bands of suspected atelectasis in the posterior lung bases adjacent to mildly elevated hemidiaphragms, also similar mild band in the left lingula. No other evidence of infiltrate or effusion. No mass. No pneumothorax. HEART: See below. MEDIASTINUM: Unremarkable. No mediastinal or hilar adenopathy. Esophagus is unremarkable. No hiatal hernia. THYROID: Unremarkable. No thyroid lesions. BONES/JOINTS: Flowing ossification most May 2 lower thoracic levels consistent with diffuse idiopathic skeletal hyperostosis. No evidence of thoracic spinal stenosis. No suspicious lytic or blastic abnormality. VASCULATURE: Suspected stents in left anterior descending and circumflex arteries, mild calcifications in right coronary artery. Normal heart size. Trace pericardial thickening or effusion anteriorly. Thoracic aorta is non-dilated. GALLBLADDER AND BILE DUCTS: Tiny nonobstructing stone layering dependently in the distal gallbladder, partially contracted gallbladder. Mildly atrophic appearing pancreas, no surrounding inflammation. Unremarkable adrenals. KIDNEYS AND URETERS: The kidneys are not fully included. CT/Chest without Contrast IMPRESSION: 1. Mildly thick bands of presumed discoid atelectasis in the posterior lung bases and in the left lingula. No definite infiltrates or effusions. 2. Coronary artery calcifications and suspected stents. 3. Cholelithiasis, no evidence of acute cholecystitis. Electronically Signed: Regina Colin MD at 5:03 EDT ,
== END | disposition home or self-care (01) ==
LOC: CT 18:31
PROVIDERS: PCP Internal Medicine; Referring Provider Internal Medicine Pulmonary Disease; Visit Provider Internal Medicine Pulmonary Disease
DX: R06.02 Shortness of breath (principal); R09.02 Hypoxemia
CPT/HCPCS: 71250

== ENCOUNTER → 2023-08-09 | Outpatient (CLI) | payer MEDICARE, SELFPAY ==
[2023-02-19 13:22] VITALS: BMI 34.2
[2023-08-09 10:41] LABS: Allen Test Positive; Base Excess 9 mmol/L (-2 to +2); Bicarbonate 34.8 mmol/L (22-26); Blood Gas Specimen Type ART; Mode Not entered; O2 Delivery Device Room Air; PO2 52 mmHG (75-100); SITE R Radial; SO2 83 % (95-99); Total Carbon Dioxide 37 mmol/L; pCO2 63.1 mmHg (35-45); pH 7.35 (7.35-7.45)
== END | disposition home or self-care (01) ==
LOC: PSN 10:01
PROVIDERS: PCP Internal Medicine; Referring Provider Internal Medicine Pulmonary Disease; Visit Provider Internal Medicine Pulmonary Disease
DX: R06.02 Shortness of breath (principal)
CPT/HCPCS: 36600; 82803